=== PATIENT | female | born 1965 | race Caucasian/White ===

== ENCOUNTER → 2024-06-12 08:25 | Outpatient (REF) | payer BC, SELFPAY ==
[2024-06-12 09:50] LABS: % Basophils 0.8 % (0-2); % Eosinophils 3.6 % (0-6); % Immature Granulocytes 0.2 % (0-0.5); % Lymphocytes 25.8 % (20.5-51.1); % Monocytes 7.1 % (1.7-9.3); % Neutrophils 62.5 % (42.2-75.2); Absolute Eosinophils 0.2 10^3/uL (0-0.7); Absolute Lymphocytes 1.2 10^3/uL (1.2-3.4); Absolute Monocytes 0.3 10^3/uL (0.1-0.6); Hemoglobin 12.4 g/dL (12.0-16.0); Mean Corp Hgb Conc. 33.5 g/dL (33.0-37.0); Mean Corpuscular Hgb 31.9 pg (27.0-31.0); Mean Corpuscular Volume 95.1 fL (81.0-99.0); Mean Platelet Volume 10.9 fL (7.4-10.4); Nucleated Red Blood Cells % 0 %; Platelet Count 249 10^3/uL (130-400); Red Blood Cell Count 3.89 10^6/uL (4.20-5.40); Red Cell Dist. Width 13.2 % (11.5-14.5); White Blood Cell Count 4.8 10^3/uL (4.8-10.8)
[2024-06-12 12:10] LABS: ALT (SGPT) 21 U/L (0-35); AST (SGOT) 32 U/L (14-36); Albumin 4.3 g/dl (3.5-5.0); Alkaline Phosphatase 92 U/L (38-126); Blood Urea Nitrogen 16 mg/dl (7-17); Carbon Dioxide 30 mmol/L (22-30); Chloride 100 mmol/L (98-107); Glucose 89 mg/dl (70-99); HDL Cholesterol 91 mg/dl; LDL Cholesterol, Calculated 99 mg/dl; Potassium 4.5 mmol/L (3.5-5.1); Sodium 135 mmol/L (135-145); Total Bilirubin 0.6 mg/dl (0.2-1.3); Total Cholesterol 206 mg/dl (50-199); Triglyceride 83 mg/dl (10-149); Very Low Density Lipoprotein 16 mg/dl (0-30); eGFR 58.24
[2024-06-12 12:30] LABS: TSH Reflex To Free T4 1.52 uIU/ml (0.47-4.68)
== END ==
LOC: REG 08:25
PROVIDERS: ATTENDING PHYSICIAN Student in an Organized Health Care Education/Training Program
DX: Z00.00 Encounter for general adult medical examination without abnormal findings (principal); Z13.220 Encounter for screening for lipoid disorders
CPT/HCPCS: 36415; 80053; 80061; 84443; 85025

== ENCOUNTER → 2024-07-16 14:19 | Outpatient (REF) | payer BC, SELFPAY | LOC: WDC 14:19 | PROVIDERS: ATTENDING PHYSICIAN Student in an Organized Health Care Education/Training Program | DX: Z12.31 Encounter for screening mammogram for malignant neoplasm of breast (principal) | CPT/HCPCS: 77063; 77067 ==

== ENCOUNTER → 2025-04-23 10:38 | Outpatient (REF) | payer BC, SELFPAY | LOC: RAD 10:38 | PROVIDERS: ATTENDING PHYSICIAN Student in an Organized Health Care Education/Training Program | DX: M25.552 Pain in left hip (principal); M54.50 Low back pain, unspecified | CPT/HCPCS: 72110; 73522 ==

== ENCOUNTER → 2025-06-04 09:36 | Outpatient (REF) | payer BC, SELFPAY ==
[2025-06-04 10:08] LABS: Hematocrit 36.5 % (37.0-47.0); Hemoglobin 12.2 g/dL (12.0-16.0); Mean Corp Hgb Conc. 33.4 g/dL (33.0-37.0); Mean Corpuscular Volume 95.8 fL (81.0-99.0); Nucleated Red Blood Cells % 0 %; Platelet Count 246 10^3/uL (130-400); Red Cell Dist. Width 13.3 % (11.5-14.5)
[2025-06-04 11:22] LABS: AST (SGOT) 31 U/L (14-36); Alkaline Phosphatase 68 U/L (38-126); Blood Urea Nitrogen 18 mg/dl (7-17); Carbon Dioxide 30 mmol/L (22-30); Chloride 103 mmol/L (98-107); Glucose 85 mg/dl (70-99); Total Protein 7.1 g/dl (6.3-8.2); Very Low Density Lipoprotein 12 mg/dl (0-30); eGFR > 60.00
[2025-06-04 11:31] LABS: ALT (SGPT) 19 U/L (0-35); Albumin 4.5 g/dl (3.5-5.0); Calcium 9.9 mg/dl (8.4-10.2); HDL Cholesterol 74 mg/dl; LDL Cholesterol, Calculated 130 mg/dl; Potassium 4.9 mmol/L (3.5-5.1); Sodium 138 mmol/L (135-145)
== END ==
LOC: REG 09:36
PROVIDERS: ATTENDING PHYSICIAN Student in an Organized Health Care Education/Training Program
DX: Z00.01 Encounter for general adult medical examination with abnormal findings (principal); Z13.220 Encounter for screening for lipoid disorders; F39 Unspecified mood [affective] disorder
CPT/HCPCS: 36415; 80053; 80061; 84443; 85025

== ENCOUNTER → 2025-07-01 13:36 | Outpatient (REF) | payer BC, SELFPAY ==
[2025-07-01 14:06] LABS: Hematocrit 38.2 % (37.0-47.0); Hemoglobin 12.7 g/dL (12.0-16.0); Mean Corp Hgb Conc. 33.2 g/dL (33.0-37.0); Mean Corpuscular Volume 95.5 fL (81.0-99.0); Nucleated Red Blood Cells % 0 %; Platelet Count 241 10^3/uL (130-400); Red Cell Dist. Width 13.0 % (11.5-14.5)
== END ==
LOC: REG 13:36
PROVIDERS: ATTENDING PHYSICIAN Student in an Organized Health Care Education/Training Program
DX: R79.89 Other specified abnormal findings of blood chemistry (principal)
CPT/HCPCS: 36415; 85025

== ENCOUNTER → 2025-07-09 12:06 | Outpatient (REF) | payer BC, SELFPAY ==
[2025-07-09 16:43] LABS: Lyme Antibody Screen, EIA Negative (Negative)
== END ==
LOC: REG 12:06
PROVIDERS: ATTENDING PHYSICIAN Student in an Organized Health Care Education/Training Program
DX: R53.83 Other fatigue (principal)
CPT/HCPCS: 36415; 86618

== ENCOUNTER 2025-09-19 08:46 | Emergency (ER) | payer SELFPAY ==
[2025-09-19 08:51] VITALS: BP 123/73
--- NOTE | 2025-09-19 09:17 | ED.GENMED ---
History of Present Illness
General
Chief Complaint: Blood and Body Fluid Exposure
Source: patient
Exam Limitations: none
Time Seen by Provider: 09/19/25 09:11
History of Present Illness
History of Present Illness:
Patient stuck by a phlebotomy needle of a low risk patient. Last tetanus unknown. Patient up-to-date on hepatitis vaccine. No symptoms except for small needlestick. Sent down from the ICU
Past History
Past History
ED Past Medical History: None
ED Past Surgical History: None
Patient has exhibited threatening behavior?: No
Social History
Tobacco: Non-smoker
Alcohol: None
Drug: None
Living: with family
Review of Systems
Review of Systems
All Other Systems: Not applicable
Phy Exam
Physical Exam
Physical Exam:
General: Nontoxic appearing in no distress
Skin: Warm and dry, no rash
Neuro: Alert, nontoxic, grossly nonfocal
Psychiatric: Good eye contact and appropriate
Musculoskeletal: Small needlestick right lateral hand
Course
Orders/Labs/Results
Orders:
Orders
09/19/25 08:54
Pt has had a significant HIV exposure? Routine
HIV Exposure is significant?: No
09/19/25 08:56
HIV Combo Urgent
Hepatitis B Surface Antibody Urgent
Hepatitis B Surface Antigen Urgent
Hepatitis C Antibody Urgent
09/19/25 09:16
Tetanus/Diphth/Acelpertussis [Adacel] 0.5 ml IM .ONCE ONE
Vital Signs
Initial and Last Documented VS:
Initial Vital Signs
Temp Pulse Resp BP Pulse Ox
98.3 F 61 16 123/73 98
09/19/25 08:51 09/19/25 08:51 09/19/25 08:51 09/19/25 08:51 09/19/25 08:51
Last Documented Vital Signs
Temp Pulse Resp BP Pulse Ox
98.3 F 61 16 123/73 98
09/19/25 08:51 09/19/25 08:51 09/19/25 08:51 09/19/25 08:51 09/19/25 09:22
MDM/Problems Addressed
Differential Diagnosis Includes:
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 Discussed doing a stat HIV on the source which might help dictate antiviral therapy now. The current patient does not want to stick the source patient now and states she would not take
antiviral medications. She is aware of the risk.
*Pulse Oximetry
SaO2: 98
Oxygen Mode of Delivery: Room air
Patient hypoxic: no (98)
*Critical Care Note
Total Time (30-74mins, 75-104mins- exclusive of procedures): Not Applicable
ED Attending Note
-
Portions of this chart may have been created with voice recognition software.� Occasional wrong word or��sound alike� substitutions may have occurred due to the inherent limitations of voice recognition software.
Discharge Plan
Departure
Patient Disposition: Home (Routine Discharge)
Date of Disposition: 09/19/25
Time of Disposition: 09:19
Patient with high blood pressure during this ER visit?: Yes
Discharge Problem:
Needlestick right fifth finger
Instructions: Exposure to HIV or hepatitis through blood or body fluids, BLOOD PRESSURE, Puncture Wound
Prescriptions:
No Action
hydrocodone-acetaminophen [[place]] 1 EACH tablet
1 ea PO Q4HPRN PRN (Reason: severe pain) Qty: 10 0RF
prednisone 20 MG tablet
40 mg PO DAILY Qty: 8 0RF
Stand Alone Forms: Bl/Fluid Consent/Declination, Blood Body/Fluid Exposure
Activity Restrictions/Additional Instructions:
Follow-up closely through occupational health
Interventions
Interventions:
*Risk Screen - Suicide Last Done: 09/19/25 08:51
*General Assessment Last Done: 09/19/25 10:00
*Neglect/Abuse Screening Last Done: 09/19/25 08:51
*ED- Fall Risk Assessment Last Done: 09/19/25 10:00
*ED COVID-19 Vaccine History Last Done: 09/19/25 10:00
*ED Influenza Vaccine History Last Done: 09/19/25 10:00
*Nursing Disposition Last Done: 09/19/25 10:00
ED-EENT Assessment Last Done: 09/19/25 10:34
ED-Skin Assessment Last Done: 09/19/25 10:00
Discharge Date and Time
Discharge Date/Time: 09/19/25 10:00
Print Language: POLISH
[2025-09-19 18:48] LABS: Hepatitis B Surface Antigen Negative (Negative)
[2025-09-19 19:06] LABS: Hepatitis C Antibody Negative (Negative)
== END 2025-09-19 10:00 | disposition home or self-care (01) ==
LOC: EMR 08:46
PROVIDERS: EMERGENCY PHYSICIAN Emergency Medicine
DX: Z77.21 Contact with and (suspected) exposure to potentially hazardous body fluids (principal)
CPT/HCPCS: 99283; 90471; 86706; 86803; 87340; 87389; 90715